=== PATIENT | female | born 1940 | race Caucasian/White ===

== ENCOUNTER → 2017-03-04 | Outpatient (CLI) | payer MEDICARE, OTHER ==
[~2017-03-04] MED LIST: COZA50TA PO; DOXY100T17 OR; ESTR0.02 TD; PRED50TA PO; SALM50I INH; VENTAER INH
--- NOTE | 2017-03-10 11:26 | RSPPFT ---
DATE OF PROCEDURE: 03/04/17 COMMENTS: VOLUMES DYNAMIC: FVC moderately reduced; FEV1 severely reduced. STATIC: RV, FRC severely increased; TLC normal. FLOWS: FEV1% moderately reduced; FEF 25-75 severely reduced. DIFFUSION: Severely reduced. FLOW VOLUME LOOP: Pattern of variable intrathoracic airways obstruction. IMPRESSION: Severe obstructive ventilatory defect with reduction in diffusion and hyperinflation consistent with emphysema. Airways resistance is increased. There is minimal change post-bronchodilator.
== END ==
LOC: HRSP 10:35
PROVIDERS: ATTEND Internal Medicine
DX: J44.9 Chronic obstructive pulmonary disease, unspecified (principal)
CPT/HCPCS: 94060; 94620; 94726; 94729